=== PATIENT | female | born 1960 | race Caucasian/White ===

== ENCOUNTER → 2016-10-15 | Outpatient (CLI) | payer OTHER ==
[2016-10-15 12:44] LABS: HEMOGLOBIN 14.9 gm/dl (12.3-15.3); WHITE BLOOD COUNT 12.1 K/UL (4.5-11.0)
[2016-10-15 13:07] LABS: BUN/CREATININE RATIO 15 (0-10)
== END ==
LOC: LAB 12:09
PROVIDERS: Emergency Medicine
DX: J20.8 Acute bronchitis due to other specified organisms (principal); J39.8 Other specified diseases of upper respiratory tract; E78.2 Mixed hyperlipidemia; M79.1 Myalgia
CPT/HCPCS: 36415; 80053; 85027

== ENCOUNTER → 2020-07-23 | Outpatient (CLI) | payer OTHER ==
[~2020-07-23] MED LIST: AMITRIPTYLINE H10 MG PO; BIOTIN800 MCG PO; PRILOSEC OTC20 MG PO; SERTRALINE HCL50 MG PO; TRIAMTERENE-HC1 EAC4 PO; VITAMIN D 40400 UNIT PO
== END ==
LOC: OPSV 08:00
DX: M05.79 Rheumatoid arthritis with rheumatoid factor of multiple sites without organ or systems involvement (principal)
CPT/HCPCS: 96365; 96375; J0129; J1720

== ENCOUNTER → 2020-09-26 | Outpatient (CLI) | payer OTHER | LOC: EXRD 08:29 | DX: M81.0 Age-related osteoporosis without current pathological fracture (principal) | CPT/HCPCS: 77080 ==

== ENCOUNTER → 2020-09-27 | Outpatient (CLI) | payer OTHER ==
[~2020-09-27] VITALS: Ht 160 cm; Wt 69.9 kg
== END ==
LOC: OPSV 09-13 09:00
DX: M05.79 Rheumatoid arthritis with rheumatoid factor of multiple sites without organ or systems involvement (principal)
CPT/HCPCS: 96365; 96375; J0129; J1720

== ENCOUNTER → 2020-10-24 | Outpatient (CLI) | payer OTHER ==
[~2020-10-24] VITALS: Ht 160 cm; Wt 69.9 kg
== END ==
LOC: OPSV 07:00
DX: M05.79 Rheumatoid arthritis with rheumatoid factor of multiple sites without organ or systems involvement (principal)
CPT/HCPCS: 96365; 96375; J0129; J1720

== ENCOUNTER → 2021-01-01 | Outpatient (CLI) | payer OTHER | LOC: EXRD 12:52 | DX: J20.9 Acute bronchitis, unspecified (principal) | CPT/HCPCS: 71046 ==

== ENCOUNTER → 2021-06-17 | Outpatient (CLI) | payer OTHER | LOC: HEART 5 08:39 | DX: R06.09 Other forms of dyspnea (principal); R05.9 Cough, unspecified | CPT/HCPCS: 94060; 94729 ==

== ENCOUNTER → 2021-07-24 | Outpatient (CLI) | payer OTHER ==
[2021-07-24 09:49] LABS: HEMOGLOBIN 15.7 gm/dl (12.3-15.3); RED BLOOD COUNT 5.69 M/UL (4.00-5.10); WHITE BLOOD COUNT 5.9 K/UL (4.5-11.0)
[2021-07-25 08:13] LABS: A/G RATIO 1.6 (1.2-2.2); ALKALINE PHOSPHATASE, S 95 IU/L (44-121); ALT (SGPT) 27 IU/L (0-32); AST (SGOT) 24 IU/L (0-40); BILIRUBIN, TOTAL <0.2 mg/dL (0.0-1.2); BUN 15 mg/dL (6-24); BUN/CREATININE RATIO 17 (9-23); CALCIUM, SERUM 9.9 mg/dL (8.7-10.2); CARBON DIOXIDE, TOTAL 27 mmol/L (20-29); CHLORIDE, SERUM 100 mmol/L (96-106); CREATININE, SERUM 0.87 mg/dL (0.57-1.00); EGFR IF AFRICN AM 85 (>59); EGFR IF NONAFRICN AM 74 (>59); GLOBULIN, TOTAL 2.8 g/dL (1.5-4.5); GLUCOSE, SERUM 102 mg/dL (65-99); PROTEIN, TOTAL, SERUM 7.2 g/dL (6.0-8.5); SODIUM, SERUM 143 mmol/L (134-144)
== END ==
LOC: CT 07-14 08:00 → KOH-I 07-14 08:00 → CT 08:26
PROVIDERS: Nurse Practitioner Family
DX: M05.79 Rheumatoid arthritis with rheumatoid factor of multiple sites without organ or systems involvement (principal); Z79.899 Other long term (current) drug therapy
CPT/HCPCS: 36415; 71250; 80053; 85025